=== PATIENT | female | born 1985 | race Caucasian/White ===

== ENCOUNTER 2017-03-05 00:18 | Emergency (ER) | payer MEDICAID, OTHER ==
[~2017-03-05] VITALS: Ht 170.2 cm; Wt 74.3 kg
[~2017-03-05 00:18] MED LIST: HYDR25TA11 PO; LAMO25TA5 PO; LORA1TAB PO; TRAZ100T15 PO; TRAZ50TA18 PO
[2017-03-05 00:19] VITALS: BP 159/104
[2017-03-05] MEDS ORDERED: OXCA300T3 PO (01:13)
[2017-03-05] MEDS ORDERED: LORA-446 PO (01:14)
[2017-03-05] MEDS ORDERED: LORazepam 1MG TABLET ONE (01:16)
[2017-03-05] MEDS ORDERED: LORazepam 1MG TABLET PO ONE (01:30)
[2017-03-05] MEDS ORDERED: BACITRACIN ZINC OINT 500U/GM, 0.9 GM ONE (02:31)
== END 2017-03-05 02:56 | disposition home or self-care (01) ==
LOC: ED 01:03
DX: S30.810A Abrasion of lower back and pelvis, initial encounter (principal); F41.1 Generalized anxiety disorder; F31.9 Bipolar disorder, unspecified; X58.XXXA Exposure to other specified factors, initial encounter; Y93.9 Activity, unspecified; Y92.89 Other specified places as the place of occurrence of the external cause; Y99.8 Other external cause status
CPT/HCPCS: 99283

== ENCOUNTER 2017-03-10 09:48 | Emergency (ER) | payer OTHER ==
[~2017-03-10] VITALS: Ht 170.2 cm; Wt 74.1 kg
[~2017-03-10 09:48] MED LIST changes: +LORA-446 PO; +OXCA300T3 PO
[2017-03-10] MEDS ORDERED: DIAZEPAM 5 MG TABLET PO ONE (10:30)
[2017-03-10 10:40] LABS: DAU SCREEN DISCLAIMER
[2017-03-10 10:49] LABS: HEMATOCRIT 45.9 % (34.6-47.8); HEMOGLOBIN 15.5 g/dL (11.7-16.4); WHITE BLOOD COUNT 7.2 x10^3/uL (3.4-10)
[2017-03-10] MEDS ORDERED: DIAZEPAM 5 MG TABLET ONE (10:49)
[2017-03-10 11:10] LABS: ASPARTATE AMINO TRANSFERASE 20 U/L (15-37); BLOOD UREA NITROGEN 10 mg/dL (7-18)
[2017-03-10 11:14] LABS: ACETAMINOPHEN < 2 mcg/mL (10-30)
[2017-03-10 12:42] VITALS: BP 140/96
[2017-03-10] MEDS ORDERED: OLANZAPINE 2.5 MG TABLET PO SCH (16:00)
== END 2017-03-10 18:58 | disposition short-term general hospital (02) ==
LOC: ED 10:14
DX: F41.1 Generalized anxiety disorder (principal); F33.3 Major depressive disorder, recurrent, severe with psychotic symptoms
CPT/HCPCS: 36415; 80053; 80307; 80329; 81003; 84443; 84703; 85025; 99284; 99285; G0479; G0480

== ENCOUNTER 2017-03-21 11:49 | Emergency (ER) | payer OTHER ==
[~2017-03-21] VITALS: Ht 170.2 cm; Wt 75.7 kg
[2017-03-21 11:58] VITALS: BP 144/106
[2017-03-21] MEDS ORDERED: ZIPRASIDONE 20MG CAPSULE ONE (12:51)
[2017-03-21] MEDS ORDERED: DIAZEPAM 5 MG TABLET ONE (12:52)
[2017-03-21] MEDS ORDERED: DIAZEPAM 5 MG TABLET PO ONE (13:00)
[2017-03-21] MEDS ORDERED: ZIPRASIDONE 20MG CAPSULE PO SCH (21:00)
== END 2017-03-21 14:34 | disposition home or self-care (01) ==
LOC: ED 13:00
DX: F31.9 Bipolar disorder, unspecified (principal); F41.9 Anxiety disorder, unspecified
CPT/HCPCS: 99283; 99284

== ENCOUNTER 2017-04-13 15:15 | Emergency (ER) | payer OTHER ==
[~2017-04-13] VITALS: Ht 170.2 cm; Wt 73.0 kg
[2017-04-13 15:18] VITALS: BP 142/70
[2017-04-13] MEDS ORDERED: LORazepam 1MG TABLET ONE (15:28)
[2017-04-13 15:32] LABS: HEMATOCRIT 42.6 % (34.6-47.8); HEMOGLOBIN 14.6 g/dL (11.7-16.4)
[2017-04-13 15:46] LABS: BLOOD UREA NITROGEN 14 mg/dL (7-18)
[2017-04-13 15:54] LABS: ASPARTATE AMINO TRANSFERASE 16 U/L (15-37)
[2017-04-13 15:55] LABS: ACETAMINOPHEN < 2 mcg/mL (10-30)
[2017-04-13] MEDS ORDERED: LORazepam 1MG TABLET PO ONE (16:00)
[2017-04-13 16:26] LABS: DAU SCREEN DISCLAIMER
== END 2017-04-13 18:44 | disposition home or self-care (01) ==
LOC: ED 15:39
DX: F41.9 Anxiety disorder, unspecified (principal); F31.9 Bipolar disorder, unspecified
CPT/HCPCS: 36415; 80053; 80307; 80329; 84443; 84703; 85025; 99284; G0479; G0480

== ENCOUNTER 2017-04-13 19:16 | Emergency (ER) | payer OTHER ==
[~2017-04-13] VITALS: Ht 167.6 cm; Wt 80.0 kg
[2017-04-13 19:17] VITALS: BP 120/76
== END 2017-04-13 19:46 | disposition left against medical advice (07) ==
LOC: ED 19:40
DX: Z53.21 Procedure and treatment not carried out due to patient leaving prior to being seen by health care provider (principal)